=== PATIENT | male | born 1960 | race Caucasian/White ===

== ENCOUNTER 2016-09-29 13:24 | Emergency (ER) | payer OTHER ==
[~2016-09-29 13:24] MED LIST: AFRIN NASAL SPR15 ML; ALBUTEROL17 GM INH; AUGMENTIN875 MG PO; GABAPENTIN300 M2 PO; ZYRTEC-D TABLE1 EACH PO
[2016-09-29] MEDS ORDERED: AUGMENTIN PO (13:33)
[2016-09-29] MEDS ORDERED: METFORMIN PO (13:33)
[2016-09-29] MEDS ORDERED: PROSTATE MEDICATION (13:34)
[2016-09-29] MEDS ORDERED: CHOLESTEROL MED (13:34)
[2016-09-29] MEDS ORDERED: BLOOD PRESSURE MED (13:34)
[2016-09-29] MEDS ORDERED: HYDROCODONE 10MG PO (13:35)
[2016-09-29] MEDS ORDERED: ASPIRIN PO (13:35)
[2016-09-29 14:23] LABS: BASOPHIL# 0.1 X10e3 (0-0.3); BASOPHIL% 0.6 % (0-2.5); EOSINOPHIL# 0.3 X10e3 (0-0.7); EOSINOPHIL% 3.2 % (0.0-7.0); HEMOGLOBIN 13.2 gm/dL (13.0-16.0); LYMPHOCYTE% 22.6 % (17.0-45.0); MEAN CELL VOLUME 88.9 FL (83-96); MEAN CORPUSCULAR HEMOGLOBIN 30.2 PG (28-34); MEAN PLATELET VOLUME 7.6 FL (6.5-11.5); MONOCYTE# 0.6 X10e3 (0-1.0); MONOCYTE% 6.5 % (3.0-12.0); NEUTROPHIL# 6.1 X10e3 (1.5-7.1); NEUTROPHIL% 67.1 % (40-75); PLATELET COUNT 272 X10e3 (140-420); RED BLOOD COUNT 4.38 X10e (3.90-5.60); RED CELL DISTRIBUTION WIDTH 13.8 % (11.0-15.5); WHITE BLOOD COUNT 9.1 X10e3 (4.0-10.5)
[2016-09-29 14:29] LABS: DIFF IND NO
[2016-09-29 14:44] LABS: ALBUMIN SERUM 3.9 g/dL (3.5-5.0); BILIRUBIN,TOTAL 0.5 mg/dL (0.2-2.0); CALCIUM SERUM 9.1 mg/dL (8.4-10.2); GLOM FILT RATE Estimated 84.4 mL/min (>60); POTASSIUM 3.8 mmol/L (3.5-5.1); PROTEIN TOTAL SERUM 6.8 g/dL (6.0-8.3)
== END 2016-09-29 15:25 | disposition home or self-care (01) ==
LOC: SED 13:24
PROVIDERS: Nurse Practitioner
DX: S90.822A Blister (nonthermal), left foot, initial encounter (principal); E11.9 Type 2 diabetes mellitus without complications; I10 Essential (primary) hypertension; Z79.899 Other long term (current) drug therapy
CPT/HCPCS: 36415; 80053; 85025; 99283